=== PATIENT | male | born 1945 | race Caucasian/White ===

== ENCOUNTER → 2018-10-05 08:26 | Outpatient (CLI) | payer MEDICARE, SELFPAY ==
--- NOTE | 2018-10-05 | DI.US.S_ITS ---
PROCEDURE: US ABD AORTA ANEURYSM SCREEN INDICATIONS: PERSONAL HX OF NICOTINE DEPENDENCE TECHNIQUE: Real time scanning was performed of the aorta and iliac arteries, with image documentation. COMPARISON: None. FINDINGS: Suboptimal evaluation due to shadowing bowel gas. Some portions of the aorta are not visualized. Aorta: Proximal aortic diameter measures 2.7 cm. Mid-aorta measures 1.9 cm. Distal aortic diameter is 1.7 cm. Iliac arteries: Right common iliac artery measures 1.0 cm. Left common iliac artery measures 1.2 cm. IMPRESSION: Suboptimal study as above due to shadowing bowel gas however no visible abdominal aortic aneurysm identified. Dictated by: Shaq Muñoz M.D. on 10/05/2018 at 10:06 Approved by: Shaq Muñoz M.D. on 10/05/2018 at 10:07
== END ==
PROVIDERS: PCP Student in an Organized Health Care Education/Training Program; Visit Provider Student in an Organized Health Care Education/Training Program
DX: Z87.891 Personal history of nicotine dependence (principal)
CPT/HCPCS: 76706

== ENCOUNTER 2018-10-25 11:56 | Day surgery (SDC) | payer MEDICARE, SELFPAY ==
--- NOTE | 2018-10-25 | PATH_ITS ---
[facility] Accession Number: [id number] . 01 Material submitted: . colon - COLON POLYP AT 120 . 01 Clinical history: . SCREENING COLONOSCOPY ENCOUNTER FOR SCREENING FOR MALIGNANT NEOPLASM . 02 Diagnosis: Colon, Polyp at 120, Biopsy: Tubular adenoma. MRV 10/26/2018 1412 Local . 02 Electronically signed: . Lauren Saucedo MD, Pathologist NPI- [id number] . 01 Gross description: . COLON POLYP AT 120: Received in formalin is 1 fragment(s) of camarena, soft tissue measuring 0.2 x 0.2 x 0.2 cm which is entirely submitted and submitted entirely in 1 cassette(s) /[facility] 10/25/20182033 Local . 02 Pathologist provided ICD-10: D12.6 . 02 CPT . 743407 Performed at: 01 [facility] [address] [id number] MD Norman Barnes MD Phone: [phone] Performed at: 02 [facility] [address] [place], [place] [id number] MD Lauren Saucedo MD Phone: [phone]
[2018-10-25 12:20] VITALS: BP 166/84; PULSE 81; RESP 16; TEMP 36.8; O2SAT 100; BMI 28.8
--- NOTE | 2018-10-25 13:14 | PM.HP.1 ---
History of Present Illness History of Present Illness Date Patient Seen: 10/25/18 Time Patient Seen: 13:14 Chief complaint: [id number] SCREENING COLONOSCOPY Narrative: Patient presents for colorectal screening. They had a previous colonoscopy 5 years ago notable for polyps. On further history denies any recent gastrointestinal symptoms. No nausea, vomiting, abdominal pain, loss of appetite, unexplained weight loss, change in bowel habits, diarrhea, constipation, melena, hematochezia, or bright red blood per rectum. Patient History Social History household members: spouse Family & Social History Social History: household members spouse Meds Home Medications and Allergies Home Medications Medication Instructions Recorded Confirmed Type CALCIUM CARBONATE (ROLAIDS~) 220 mg PO PRN #0 02/08/11 10/25/18 History hydrochlorothiazide 25 mg PO QDAY #0 02/08/11 10/25/18 History lansoprazole 20 mg PO PRN #0 02/08/11 10/25/18 History simvastatin [Zocor] 40 mg PO HS #0 02/08/11 History amlodipine 10 mg PO QDAY #0 tab 11/20/15 10/25/18 History atorvastatin [Lipitor] 40 mg PO HS #0 11/20/15 10/25/18 History carbidopa-levodopa 4 tab PO TID #0 11/20/15 10/25/18 History hydroxyzine pamoate [Vistaril] 25 - 50 mg PO Q4HP PRN #30 cap 12/10/15 10/25/18 Rx oxycodone 5 - 10 mg PO Q3HP PRN #30 tab 12/10/15 10/25/18 Rx Review of Systems Review of Systems ROS Unobtainable: All systems reviewed & are unremarkable except as noted in HPI and below Exam Vital Signs (past 8 hours): - 10/25/18 12:20 Temperature 98.2 F Pulse Rate 81 Respiratory Rate 16 Blood Pressure 166/84 H Pulse Oximetry 100 Oxygen Delivery Method Room Air Narrative Exam Narrative: General-adult male no acute distress, well nourished HEENT-moist mucous membranes, no scleral icterus Neck-supple with full range of motion, no lymphadenopathy Chest- no labored respirations, clear to auscultation bilaterally Cardiac-regular rate and rhythm Abdomen-soft, nontender, non distended Extremities-no edema, warm well perfused Neurological-alert and oriented x 3. No focal deficits Skin-normal temperature and turgor, no rashes or ulcers Assessment & Plan Assessment and plan (1) Encounter for screening colonoscopy: Current visit: Yes Status: Acute Assessment & Plan narrative: Patient is requiring colorectal screening. Colonoscopy is recommended. Technical details were discussed. Risks, benefits, alternatives explained. Risks including but not limited to sedation, aspiration, bleeding, pain, missed lesion, incomplete examination, need for further radiographic studies, colonic perforation, need for major abdominal surgery, and all attendant risks major surgery were discussed at length. All questions were answered to their satisfaction, and they voiced understanding.
[2018-10-25] MEDS: MIDAZOLAM 5 MG/5 ML VIAL IV (13:46)
[2018-10-25] MEDS: fentaNYL 250 MCG/5 ML INJ IV (13:47)
[2018-10-25 13:54] VITALS: BP 155/79; PULSE 75; RESP 13; TEMP 36.6; O2SAT 99
--- NOTE | 2018-10-25 13:58 | PM.OP.ENDO ---
Operative Date/Time/Diagnoses Date of procedure: 10/25/18 Time of procedure: 13:58 Pre-op diagnosis: Colorectal screening Post-op diagnosis: same Procedure & Clinicians Study performed: Colonoscopy Same procedure as scheduled: Yes Indications: 73-year-old male with previous colonoscopy 5 years ago significant for a polyp returns for routine endoscopy. Surgeon: Jos Horton Procedure Notes SCOAP/Timeout: Performed Procedure in detail: Digital rectal exam was performed which was negative for masses. The colonoscope was then carefully inserted into the rectum and advanced through the colon. Ileocecal valve was reached. The scope was then carefully withdrawn. One polyp within the right colon at 120 cm less than 1 cm in size a benign appearance was biopsy using forceps. The scope was retroflexed within the rectum. The scope was then removed. Scope withdrawal time: 7 Sedation minutes: 24 Findings: polyp Specimen(s): other (Less than 1 cm polyp at 120 cm) Complications: none Impression: Polyp Post-procedure Recommendations: Colonscopy in 10 years Disposition: same day surgery
[2018-10-25 14:00] VITALS: BP 151/82; PULSE 74; RESP 13; O2SAT 98
[2018-10-25 14:05] VITALS: BP 134/73; PULSE 75; RESP 15; O2SAT 97
[2018-10-25 14:15] VITALS: BP 135/84; PULSE 71; RESP 16; TEMP 36.8; O2SAT 97
== END 2018-10-25 14:31 | disposition home or self-care (01) ==
PROVIDERS: PCP Student in an Organized Health Care Education/Training Program; Visit Provider Surgery
PROC: 0DJD8ZZ Inspection of Lower Intestinal Tract, Via Natural or Artificial Opening Endoscopic (ICD-10-PCS; CPT 45378; principal; 2018-10-25 13:00)
DX: Z86.010 Personal history of colon polyps (principal); D12.6 Benign neoplasm of colon, unspecified
CPT/HCPCS: 45380; 99152; J2250; J3010

== ENCOUNTER → 2020-03-10 14:41 | Outpatient (CLI) | payer MEDICARE, SELFPAY ==
--- NOTE | 2020-03-10 14:43 | DI.ECHO.S_ITS ---
[facility]---------+ [facility] +---------+ : : [address] : : : : [phone] : : : : Phone: [phone] Echocardiogram Report + + :Name: LUIGI CALI Study Date: 03/10/2020 Height: 73 in : :[facility] ReadingLocation: Weight: 230 lb : : Gender: Male BSA: 2.3 m2 : :: 1945 Age: 74 yrs BP: 160/89 mmHg: :Reason For Study: DISORDERS OF ARTERIES AND ARTERIOLS : :Ordering Physician: NITESH, : :MALVIN Performed By: Julia Baldwin : :Referring: MALVIN DOWLING : + + Interpretation Summary Left ventricular systolic function remains normal with an estimated ejection fraction of 60 to 65% without any focal wall motion abnormality. There is borderline LVH with mild septal thickening but diastolic function is likely normal with probable normal filling pressures. There has been no significant change since the previous study. The right ventricle is mildly enlarged but measures smaller compared to the previous exam. Right ventricular systolic function remains borderline reduced but unchanged from the previous study. Right ventricular systolic pressure is estimated at 27 mmHg with a CVP of 3 mmHg and is likely similar to the previous exam. The left atrium is mildly enlarged and the right atrium is borderline enlarged but both are unchanged compared to the previous study. The interatrial septum grossly appears intact without any obvious associated mass although visualization is somewhat suboptimal. There is mild mitral and mild pulmonic valve regurgitation that are unchanged from the previous study. There is mild tricuspid regurgitation that is slightly less prominent compared to the previous exam. The ascending aorta is mild to moderately enlarged and the aortic arch is mildly enlarged and they measure slightly larger compared to the previous study. Procedure: A two-dimensional transthoracic echocardiogram with color flow and Doppler was performed. The study quality was technically adequate. Comparison is made with the echocardiogram of 02/16/2015. The patient was in sinus rhythm with heart rates between 73-78 bpm during the exam. Left Ventricle: The left ventricle is normal in size. There is borderline concentric left ventricular hypertrophy. There is mild proximal septal thickening noted. This is unchanged compared to the previous study. Left ventricular systolic function appears normal without focal wall motion abnormalities. The ejection fraction is estimated to be 60-65%. Diastolic parameters suggest probable normal left ventricular diastolic function and normal filling pressures. This is unchanged compared to the previous study. Right Ventricle: The right ventricle is mildly dilated. This is smaller compared to the previous study. Right ventricular systolic function is borderline reduced. This is unchanged compared to the previous study. Atria: The left atrium is mildly dilated. The right atrium is borderline dilated. This is unchanged compared to the previous study. There is no Doppler evidence for an interatrial shunt. The interatrial septum grossly appears intact with no obvious evidence for an atrial septal defect. Mitral Valve: There is mild mitral annular calcification. There is mild mitral regurgitation. This is unchanged compared to the previous study. Aortic Valve: The aortic valve is trileaflet. The aortic valve is slightly calcified. The aortic valve opens well. There is no aortic valve stenosis. No aortic regurgitation is present. Tricuspid Valve: The tricuspid valve is normal in structure and function. There is mild tricuspid regurgitation. This is slightly less prominent compared to the previous study. The right ventricular systolic pressure is estimated to be at least 27 mmHg based on an estimated right atrial pressure of 3 mm Hg. This is unchanged compared to the previous study. Pulmonic Valve: The pulmonic valve leaflets are thin and pliable; valve motion is normal. There is mild pulmonic regurgitation. This is unchanged compared to the previous study. Great Vessels: The aortic root is normal size. This is unchanged compared to the previous study. The ascending aorta is mild-moderately enlarged. The aortic arch is mildly enlarged. This is slightly larger compared to the previous study. The IVC is of normal diameter and collapses greater than 50% with a sniff. This suggests a low right atrial pressure of 3 mm Hg. Pericardium/ Pleura There is no pericardial effusion. There is no pleural effusion. MMode/2D Measurements & Calculations LVIDd: 4.9 cm LVOT diam: 2.4 cm LVIDs: 3.2 cm Ao root diam: 3.8 cm FS: 34.7 % asc Aorta Diam: 3.9 cm EPSS: 0.80 cm Ao Arch Diam (Prox Trans): 3.2 cm IVSd: 1.1 cm LVPWd: 1.0 cm LV andrew. diameter/BSA (cm/m^2): 2.2 LV sys. diameter/BSA (cm/m^2): 1.4 LA A2 area: 25.3 cm2 RA long axis: 5.6 cm LA A4 area: 25.7 cm2 RA area: 21.5 cm2 LA length (vol): 6.4 cm RA vol: 69.5 ml LA vol: 86.0 ml RA : 30.4 ml/m2 LA vol index: 37.6 ml/m2 IVC diam: 1.1 cm RVD1 (basal): 4.1 cm TAPSE: 1.3 cm Doppler Measurements & Calculations Ao V2 max: 109.5 cm/sec LVOT Max Nain: 98.5 cm/sec Ao V2 mean: 76.2 cm/sec LV V1 max P.9 mmHg Ao max P.8 mmHg LV V1 VTI: 19.2 cm Ao mean P.6 mmHg SANGITA(I,D): 4.0 cm2 Ao V2 VTI: 22.3 cm SANGITA(V,D): 4.2 cm2 sev ratio: 0.86 SANGITA indexed to BSA (cm^2/m^2): 1.8 MV E max nain: 57.9 cm/sec TR max nain: 246.0 cm/sec MV A max nain: 53.9 cm/sec TR max P.2 mmHg MV E/A: 1.1 PA V2 max: 62.0 cm/sec Med Peak E' Nain: 9.0 cm/sec PA V2 mean: 39.8 cm/sec E/E' med: 6.4 PA mean P.72 mmHg Lat Peak E' Nain: 13.1 cm/sec PA pr(Accel): 44.7 mmHg E/E' lat: 4.4 E/e' average: 5.4 MV dec time: 0.21 sec SV(LVOT): 90.4 ml Reading Physician:09:52 AM
== END ==
PROVIDERS: PCP Student in an Organized Health Care Education/Training Program; Referring Provider Specialist; Visit Provider Specialist
DX: I08.1 Rheumatic disorders of both mitral and tricuspid valves (principal); I77.89 Other specified disorders of arteries and arterioles
CPT/HCPCS: 93306